=== PATIENT | male | born 1965 | race African-American/Black ===

== ENCOUNTER 2019-06-22 20:31 | Emergency (ER) | payer SELFPAY ==
[2019-06-22 20:37] VITALS: BP 125/75; PULSE 104; TEMP 98.5; BMI 34.3
--- NOTE | 2019-06-22 21:41 | PDOC ---
Documentation entered by Jaylin Duran SCRIBE, acting as scribe for Doretha Morgan MD. Doretha Morgan MD: This documentation has been prepared by the michaelibe, Jaylin Duran SCRIBE, under my direction and personally reviewed by me in its entirety. I confirm that the documentation accurately reflects all work , treatment, procedures, and medical decision making performed by me. History of Present Illness - General Chief Complaint: Pain Stated Complaint: RT KNEE PAIN History Source: Patient Exam Limitations: No Limitations - History of Present Illness Initial Comments: 06/22/19 21:08 The patient is a 54-year-old male who presents to the emergency department with right lower extremity swelling. The patient reports about 2 days ago he developed knee pain after his dog fell asleep on that knee. The patient reports since then, the knee and the leg has been becoming more swollen and painful. Denies any trauma. Denies recent travel or prolonged immobilization. PAST MEDICAL HISTORY: OA (right knee) PAST SURGICAL HISTORY: no significant history FAMILY HISTORY: no pertinent history. Denies a known family history of blood clots SOCIAL HISTORY: Pt lives with family and is unemployed. MEDICATIONS: reviewed ALLERGIES: As per nursing notes Review of system: General: No fevers or chills, no weakness, no weight loss HEENT: No change in vision. No sore throat,. No ear pain CardioVascular: No chest pain or shortness of breath Respiratory:No cough, or wheezing. Gastrointestinal: no nausea, vomiting, diarrhea or constipation, No rectal bleeding Genitourinary: No dysuria, hematuria, or frequency Musculoskeletal: +right lower extremity swelling. No joint or muscle pain or swelling Neurologic: No headache, vertigo, dizziness or loss of consciousness Psychiatric: nor depression Skin: No rashes or easy bruising Endocrine: no increased thirst or abnormal weight change Allergic: no skin or latex allergy All other systems reviewed and normal Physical exam: GENERAL: The patient is awake, alert, and fully oriented, in no acute distress. HEAD: Normal with no signs of trauma. EYES: Pupils equal, round and reactive to light, extraocular movements intact, sclera anicteric, conjunctiva clear. EXTREMITIES: +Right lower extremity swelling of the knee and below the knee. Neurovascularly intact, no ecchymosis, full popliteal fossa, no tenderness or palpable cord. Rest of the extremities: Normal range of motion, no edema. NEUROLOGICAL: Normal speech, normal gait. PSYCH: Normal mood, normal affect. SKIN: Warm, Dry, normal turgor, no rashes or lesions noted. 06/22/19 21:36 Ultrasound was done and ultrasound was positive for Francis's cyst otherwise no DVT. Patient given Tha wrap and told to follow-up with an orthopedist. Past History - Past Medical History Allergies/Adverse Reactions: Allergies Allergy/AdvReac Type Severity Reaction Status Date / Time Sulfa (Sulfonamide Allergy Verified 06/22/19 20:33 Antibiotics) Home Medications: Ambulatory Orders NK [No Known Home Medication] 06/22/19 CVA: No COPD: No - Psycho Social/Smoking Cessation Hx Smoking History: Never smoked *Physical Exam - Vital Signs Last Vital Signs Temp Pulse Resp BP Pulse Ox 98.5 F 104 H 16 125/75 97 06/22/19 20:33 06/22/19 20:33 06/22/19 20:33 06/22/19 20:33 06/22/19 20:33 ED Treatment Course - RADIOLOGY Radiology Studies Ordered: Category Date Time Status DUPLEX VASCUL US-1 LEG [US] Stat Ultrasound 06/22/19 20:57 Taken Discharge - Discharge Information Problems reviewed: Yes Clinical Impression/Diagnosis: 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 Wear the Tha wrap for additional support . Follow-up with an orthopedist Dr. Santana. Return to the emergency department immediately with ANY new, persistent or worsening symptoms. Continue any medications as previously prescribed by your physician. You should follow up with your primary doctor as soon as possible regarding today's emergency department visit. . Please make sure your doctor reviews the results of your emergency evaluation. Thank you for coming to the Emergency Department today for your care. It was a pleasure to see you today. Please note that your evaluation is INCOMPLETE until you follow-up with your doctor. - Post Discharge Activity
== END 2019-06-22 21:47 | disposition home or self-care (01) ==
LOC: FER 20:31
DX: M71.38 Other bursal cyst, other site (principal)
CPT/HCPCS: 93971-TC; 99282-25